=== PATIENT | female | born 1960 | race Caucasian/White ===

== ENCOUNTER 2016-04-11 18:51 | Emergency (ER) | payer OTHER, SELFPAY ==
[2016-04-11] MEDS ORDERED: HYDROcodone/Acetaminophen 5/325 mg Tablet ONE (19:59)
[2016-04-11] MEDS ORDERED: Ketorolac Tromethamine 30 MG/ML VIAL ONE (19:59)
--- NOTE | 2016-04-11 20:20 | ERRECORD ---
[facility] EMERGENCY RECORD HPI BACK (19:19 WMEI) CHIEF COMPLAINT: Patient presents for evaluation of injury, Patient presents for evaluation of pain, to the right lower back. HISTORIAN: History provided by patient. MECHANISM OF INJURY: Mechanism of injury: Body motion, twisting, bending, lifting, No alcohol use associated with this incident, No drug use associated with this incident. LOCATION: Symptoms are localized to the back, left lumbar region, right lumbar region. TIME COURSE: Sudden onset of symptoms, Symptoms are worsening, LOW BACK PAIN WORSE TODAY AFTER WENT BACK TO WORK. ASSOCIATED WITH: No associated bladder incontinence, No associated bowel incontinence, No associated dysuria. EXACERBATED BY: Patient's condition exacerbated by cough, Patient's condition exacerbated by deep breath, Patient's condition exacerbated by movement. RELIEVED BY: Patient's condition relieved by nothing. ROS (19:21 WMEI) CONSTITUTIONAL: Historian denies chills, denies fever. EYES: Historian denies eye pain, denies eye discharge. ENT: Historian denies rhinorrhea, denies sore throat. CARDIOVASCULAR: Historian denies chest pain, no radiation. RESPIRATORY: Historian denies cough, denies shortness of breath. GI: Historian denies abdominal pain, denies nausea. PAIN RADIATES TO LOWER ABD/HIP. GENITOURINARY FEMALE: Historian denies dysuria, denies frequency. MUSCULOSKELETAL: Historian reports back pain, denies joint redness, denies joint stiffness. SKIN: Historian denies skin changes, denies skin lesions. NEUROLOGIC: Historian denies dizziness, denies focal weakness, denies mental status changes. PSYCHIATRIC: Historian denies alcohol abuse, denies anxiety, denies depression. PAST MEDICAL HISTORY (19:02 PGRI) MEDICAL HISTORY: Notes: TBI, Flu vaccine not up to date, Pneumococcal vaccine not up to date. FEMALE SURGICAL HISTORY: LEFT SHOULDER, LEFT KNEE, 3 ANKLE, Surgical history of cholecystectomy. PSYCHIATRIC HISTORY: Psychiatric history includes, depression, PTSD. SOCIAL HISTORY: Patient drinks socially, Patient denies drug use, Patient currently uses tobacco, smokes cigarettes, Patient smokes 1/2 packs per day. KNOWN ALLERGIES Penicillins &a-1R&a+25V*p+0X*r4653D*c202B*c15G*c2P*p-0X&a-25V&a+1R Name: Karla Hong : 1960 F55 MedRec: [id number] AcctNum: [id number] Prepared: Meaghan Apr 11, 2016 20:11 by Interface Page 1 of 3 pMD [facility] EMERGENCY RECORD CURRENT MEDICATIONS (19:14 PGRI) citalopram: TABLET : Strength - 10 mg : ORAL Patient Dose: unk mg Oral. Ambien: TABLET : Strength - 5 mg : ORAL Patient Dose: unk mg Oral. ALPRAZolam: TABLET : Strength - 0.25 mg : ORAL Patient Dose: unk mg Oral. VITAL SIGNS (19:02 KMOR) VITAL SIGNS: BP: 121/80, Pulse: 101, Resp: 18, Temp: 97.8 (Oral), Pain: 5, O2 sat: 99 on Room Air, Time: 04/11/2016 19:02. PHYSICAL EXAM (19:22 WMEI) CONSTITUTIONAL: Patient afebrile, Pulse normal, Patient alert and oriented to person, place and time. HEAD: no abrasions, No Lacerations. EYES: Conjunctiva, Sclera. ENT: Ear exam included findings of, Nose exam included findings of, Pharynx. NECK: Neck exam included findings of normal range of motion, Trachea midline. RESPIRATORY CHEST: Breath sounds clear, Chest exam included findings of chest movement symmetrical. CARDIOVASCULAR: Cardiovascular exam included findings of heart rate regular rate and rhythm, Heart sounds normal. ABDOMEN FEMALE: Abdominal exam included findings of abdomen nontender, Bowel sounds normal, Liver normal, Spleen normal. BACK: Back exam included findings of normal inspection, Range of motion, less than 15 degrees, limited by pain, EXT 10* FLEX 30*. UPPER EXTREMITY: Upper extremity exam included findings of inspection normal, Range of motion normal. LOWER EXTREMITY: Lower extremity exam included findings of inspection normal, Range of motion normal, SLR NEG PASSINELY FROM SITTING POSITION. NEURO: Neuro exam findings include patient oriented to person, place and time, [place] coma scale 15, Speech normal, Deep tendon reflexes abnormal, to the right patella, R PATTELAR DECREASED NO WEAKNWSS IN FLEXOR OR EXTENDERS. SKIN: Skin exam included findings of skin warm, dry, and normal in color. LYMPHATIC: Lymphatic exam normal. PSYCHIATRIC: Psychiatric exam included findings of patient oriented to person place and time, Normal affect, Judgment normal, Insight normal. 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 MEDICATION ADMINISTRATION SUMMARY Drug Name: Toradol intramuscular, Dose Ordered: 60 mg, Route: Intramuscular, Status: Given, Time: 20:06 04/11/2016, Drug Name: [place], Dose Ordered: 5 mg, Route: Oral, Status: Given, Time: 20:05 04/11/2016, Detailed record available in Medication Service section. PROBLEM LIST No recorded problems DIAGNOSIS (19:59 WMEI) FINAL: PRIMARY: SPRAIN LIGAMENTS LUMBAR SPN INITIAL. PRESCRIPTION (19:58 WMEI) Flexeril: TABLET : 10 mg : ORAL : Quantity: 1 Unit: tab(s) Route: ORAL Schedule: 2 times a day (before meals) Dispense: 30 Unit: tab(s) May substitute. Refills: No Refills . NOTES: No refills. traMADol: TABLET : 50 mg : ORAL : Quantity: 1 Unit: tab(s) Route: ORAL Schedule: every 8 hours PRN Dispense: 21 Unit: tab(s) May substitute. Refills: No Refills . NOTES: ^s=No refills No refills. DISPOSITION PATIENT: Disposition Type: Discharge, Disposition: *Discharge Home. (19:59 WMEI) Patient left the department. (20:09 CHOB) Red: VAISHALI=RYLAN Colón, Breanna MELVIN=RYLAN Palacio, Solange VENTURAI=RYLAN Little, Miriam WMEI=DO Leo William &a-1R&a+25V*p+0X*e1400Z*c202B*c15G*c2P*p-0X&a-25V&a+1R Name: Hong, Karla E : 1960 F55 MedRec: [id number] AcctNum: [id number] Prepared: Meaghan Apr 11, 2016 20:11 by Interface Page 3 of 3 pMD MTDD
--- NOTE | 2016-04-11 20:22 | PICIS ---
[facility] EMERGENCY RECORD TRIAGE (19:02 PGRI) TRIAGE NOTES: Patient injured back on Friday at work while pulling a high pressure water hose. (19:02 PGRI) PATIENT: NAME: Karla Hong, AGE: 55, GENDER: female, : Fri1960, TIME OF GREET: FriApr 11, 2016 18:52, PREFERRED LANGUAGE: Czech, ETHNICITY: Not or , ECODE BILLING MAP: [facility], SSN: [id number], Zip Code: [address], KG WEIGHT: 90.72, , , PERSON ID: [id number], PCP: Dash Vaca, /SHREYA. (19:02 PGRI) PHONE: , PAYMENT: [employer] Workmans Comp. (19:11) COMPLAINT: Back Pain. (19:02 PGRI) ADMISSION: URGENCY: 4 Non Urgent, ADMISSION SOURCE: Home, TRANSPORT: Walk-in, BED: TRIAGE. (19:02 PGRI) TRIAGE SCREENING: Patient denies suicidal ideation, Patient denies presence of domestic violence. (19:02 PGRI) PROVIDERS: TRIAGE NURSE: Miriam Little RN. (19:02 PGRI) PREVIOUS VISIT ALLERGIES: Penicillins. (19:02 PGRI) Penicillins. (19:02 PGRI) KNOWN ALLERGIES Penicillins CURRENT MEDICATIONS (19:14 PGRI) citalopram: TABLET : Strength - 10 mg : ORAL Patient Dose: unk mg Oral. Ambien: TABLET : Strength - 5 mg : ORAL Patient Dose: unk mg Oral. ALPRAZolam: TABLET : Strength - 0.25 mg : ORAL Patient Dose: unk mg Oral. VITAL SIGNS VITAL SIGNS: BP: 121/80, Pulse: 101, Resp: 18, Temp: 97.8 (Oral), Pain: 5, O2 sat: 99 on Room Air, Time: 04/11/2016 19:02. (19:02 KMOR) BP: 126/86, Pulse: 72, Resp: 18, Temp: 97.3, Pain: 4, O2 sat: 96 on RA, Time: 04/11/2016 20:09. (20:09 CHOB) NURSING ASSESSMENT: BACK (19:10 PGRI) CONSTITUTIONAL: Patient arrives ambulatory, Gait steady, History obtained from patient, Patient appears, in distress due to pain, Patient cooperative, Patient alert, Oriented to person, place and time, Skin warm, Skin dry, Skin normal in color, Mucous membranes pink, Mucous membranes moist, Patient complains of back pain, patient was at work Friday and was pulling a high pressure water hose and "pulled a muscle in her back". patient able to move all extremities and denies any numbness or tingling in extremities. pain is mostly in low back but it radiates "everywhere". &a-1R&a+25V*p+0X*u3353V*c202B*c15G*c2P*p-0X&a-25V&a+1R Name: Karla Hong : 1960 F55 MedRec: [id number] AcctNum: [id number] Prepared: Meaghan Apr 11, 2016 22:58 by Interface Page 1 of 6 pMD [facility] EMERGENCY RECORD PAIN: aching pain, to the lower back, Pain radiates, Onset of pain 04/08/2016, on a scale 0-10 patient rates pain as 5, Nothing has been tried to alleviate the pain. BACK: Back assessment findings include tenderness to, bilateral lower back, no paresthesias to extremities, no weakness to extremities, no incontinence of bowel or bladder, Right radial pulse +4(strong and bounding), Left radial pulse +4(strong and bounding), Left dorsalis pedis pulse +3(easily palpated, considered normal), Right dorsalis pedis pulse +3(easily palpated, considered normal). NECK: Neck assessment findings include trachea midline, no jugular vein distention noted, no lymphadenopathy, no tenderness, no pain with range of motion, Patient not in spinal immobilization on arrival. SAFETY: Side rails up, Cart/Stretcher in lowest position, Family at bedside, Call light within reach, Hospital ID band on. NURSING PROCEDURE: DISCHARGE NOTE (20:09 CHOB) DISCHARGE: Patient discharged to home, ambulating without assistance, family driving, accompanied by other family member, Patient requested and was provided an electronic copy of Discharge Instructions, Discharge instructions given to patient, Simple or moderate discharge teaching performed, by AAKASH,RN, Prescriptions given and instructions on side effects given, Name of prescription(s) given: TRAMADOL,FLEXERIL, Above person(s) verbalized understanding of discharge instructions and follow-up care, Patient instructed not to drive home. BELONGINGS: Belongings and valuables with patient at time of discharge include:, Belongings remain with patient. SAFETY: Side rails up, Cart/Stretcher in lowest position, Family at bedside, Call light within reach, Hospital ID band on. VITAL SIGNS: BP: 126, / 86, Pulse: 72, Resp: 18, Temp: 97.3, Pain: 4, O2 sat: 96, on: RA. NURSING PROCEDURE: NURSE NOTES (19:12 PGRI) NURSES NOTES: Patient examined by physician. NURSING PROCEDURE: TRANSPORT TO TESTS (19:35 PGRI) PATIENT IDENTIFIER: Patient actively involved in identification process, Patient's identity verified by patient stating name, Patient's identity verified by patient stating date. TRANSPORT TO TESTS: Patient transported to x-ray, via wheelchair. SAFETY: Side rails up, Cart/Stretcher in lowest position, Family at bedside, Call light within reach, Hospital ID band on. ORDER DETAILS Order Name: XR Lumbar Spine 2 Or 3 View, Status: Active, Time: 19:19 04/11/2016, User: WMEI, &a-1R&a+25V*p+0X*e9356M*c202B*c15G*c2P*p-0X&a-25V&a+1R Name: Karla Hong : 1960 F55 MedRec: [id number] AcctNum: [id number] Prepared: FriApr 11, 2016 22:58 by Interface Page 2 of 6 pMD [facility] EMERGENCY RECORD - Ordered for: DO Leo William, - Entered by: DO Leo William - [facility] Apr 11, 2016 19:19, - Quantity: 1. MEDICATION ADMINISTRATION SUMMARY Drug Name: Toradol intramuscular, Dose Ordered: 60 mg, Route: Intramuscular, Status: Given, Time: 20:06 04/11/2016, Drug Name: [place], Dose Ordered: 5 mg, Route: Oral, Status: Given, Time: 20:05 04/11/2016, Detailed record available in Medication Service section. MEDICATION SERVICE [place]: Order: [place] (hydrocodone bitartrate/acetaminophen) - Dose: 5 mg : Oral Schedule: Now Ordered by: Arthur Leo DO Entered by: Arthur Leo DO [facility] Apr 11, 2016 19:57 , Acknowledged by: Miriam Little RN [facility] Apr 11, 2016 19:58 Documented as given by: Miriam Little RN [facility] Apr 11, 2016 20:05 Patient, Medication, Dose, Route and Time verified prior to administration. Site: Medication administered P.O., Patient appears Awake and alert- acceptable, Correct patient, time, route, dose and medication confirmed prior to administration, Patient advised of actions and side-effects prior to administration, Allergies confirmed and medications reviewed prior to administration, Patient in position of comfort, Side rails up, Cart in lowest position, Family at bedside, Call light in reach. Toradol intramuscular: Order: Toradol intramuscular (ketorolac tromethamine) - Dose: 60 mg : Intramuscular Schedule: Now Ordered by: Arthur Leo DO Entered by: Arthur Leo DO [facility] Apr 11, 2016 19:57 , Acknowledged by: Miriam Little RN [facility] Apr 11, 2016 19:58 Documented as given by: Miriam Little RN [facility] Apr 11, 2016 20:06 Patient, Medication, Dose, Route and Time verified prior to administration. IM medication, Medication administered to left deltoid, Patient appears Awake and alert- acceptable, Correct patient, time, route, dose and medication confirmed prior to administration, Patient advised of actions and side-effects prior to administration, Allergies confirmed and medications reviewed prior to administration, Patient in position of comfort, Side rails up, Cart in lowest position, Family at bedside, Call light in reach. HPI BACK (19:19 [facility]) CHIEF COMPLAINT: Patient presents for evaluation of injury, Patient presents for evaluation of pain, to the right lower back. HISTORIAN: History &a-1R&a+25V*p+0X*t0576U*c202B*c15G*c2P*p-0X&a-25V&a+1R Name: Karla Hong : 1960 F55 MedRec: [id number] AcctNum: [id number] Prepared: FriApr 11, 2016 22:58 by Interface Page 3 of 6 pMD [facility] EMERGENCY RECORD provided by patient. MECHANISM OF INJURY: Mechanism of injury: Body motion, twisting, bending, lifting, No alcohol use associated with this incident, No drug use associated with this incident. LOCATION: Symptoms are localized to the back, left lumbar region, right lumbar region. TIME COURSE: Sudden onset of symptoms, Symptoms are worsening, LOW BACK PAIN WORSE TODAY AFTER WENT BACK TO WORK. ASSOCIATED WITH: No associated bladder incontinence, No associated bowel incontinence, No associated dysuria. EXACERBATED BY: Patient's condition exacerbated by cough, Patient's condition exacerbated by deep breath, Patient's condition exacerbated by movement. RELIEVED BY: Patient's condition relieved by nothing. ROS (19:21 WMEI) CONSTITUTIONAL: Historian denies chills, denies fever. EYES: Historian denies eye pain, denies eye discharge. ENT: Historian denies rhinorrhea, denies sore throat. CARDIOVASCULAR: Historian denies chest pain, no radiation. RESPIRATORY: Historian denies cough, denies shortness of breath. GI: Historian denies abdominal pain, denies nausea. PAIN RADIATES TO LOWER ABD/HIP. GENITOURINARY FEMALE: Historian denies dysuria, denies frequency. MUSCULOSKELETAL: Historian reports back pain, denies joint redness, denies joint stiffness. SKIN: Historian denies skin changes, denies skin lesions. NEUROLOGIC: Historian denies dizziness, denies focal weakness, denies mental status changes. PSYCHIATRIC: Historian denies alcohol abuse, denies anxiety, denies depression. PAST MEDICAL HISTORY (:02 PGRI) MEDICAL HISTORY: Notes: TBI, Flu vaccine not up to date, Pneumococcal vaccine not up to date. FEMALE SURGICAL HISTORY: LEFT SHOULDER, LEFT KNEE, 3 ANKLE, Surgical history of cholecystectomy. PSYCHIATRIC HISTORY: Psychiatric history includes, depression, PTSD. SOCIAL HISTORY: Patient drinks socially, Patient denies drug use, Patient currently uses tobacco, smokes cigarettes, Patient smokes 1/2 packs per day. PHYSICAL EXAM (19:22 WMEI) CONSTITUTIONAL: Patient afebrile, Pulse normal, Patient alert and oriented to person, place and time. HEAD: no abrasions, No Lacerations. EYES: Conjunctiva, Sclera. ENT: Ear exam included findings of, Nose exam included findings of, Pharynx. &a-1R&a+25V*p+0X*q9318U*c202B*c15G*c2P*p-0X&a-25V&a+1R Name: Karla Hong : 1960 F55 MedRec: [id number] AcctNum: [id number] Prepared: FriApr 11, 2016 22:58 by Interface Page 4 of 6 pMD [facility] EMERGENCY RECORD NECK: Neck exam included findings of normal range of motion, Trachea midline. RESPIRATORY CHEST: Breath sounds clear, Chest exam included findings of chest movement symmetrical. CARDIOVASCULAR: Cardiovascular exam included findings of heart rate regular rate and rhythm, Heart sounds normal. ABDOMEN FEMALE: Abdominal exam included findings of abdomen nontender, Bowel sounds normal, Liver normal, Spleen normal. BACK: Back exam included findings of normal inspection, Range of motion, less than 15 degrees, limited by pain, EXT 10* FLEX 30*. UPPER EXTREMITY: Upper extremity exam included findings of inspection normal, Range of motion normal. LOWER EXTREMITY: Lower extremity exam included findings of inspection normal, Range of motion normal, SLR NEG PASSINELY FROM SITTING POSITION. NEURO: Neuro exam findings include patient oriented to person, place and time, [place] coma scale 15, Speech normal, Deep tendon reflexes abnormal, to the right patella, R PATTELAR DECREASED NO WEAKNWSS IN FLEXOR OR EXTENDERS. SKIN: Skin exam included findings of skin warm, dry, and normal in color. LYMPHATIC: Lymphatic exam normal. PSYCHIATRIC: Psychiatric exam included findings of patient oriented to person place and time, Normal affect, Judgment normal, Insight normal. EVENTS TRANSFER: Triage to Emergency Triage. (Meaghan Apr 11, 2016 19:02 PGRI) Emergency Triage to Emergency Room -02. (19:02 PGRI) Removed from Emergency Emergency Room -02. 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 PROBLEM LIST No recorded problems DIAGNOSIS (19:59 WMEI) FINAL: PRIMARY: SPRAIN LIGAMENTS LUMBAR SPN INITIAL. DISPOSITION PATIENT: Disposition Type: Discharge, Disposition: *Discharge Home. (19:59 WMEI) Patient left the department. (20:09 CHOB) INSTRUCTION (19:59 WMEI) DISCHARGE: LUMBAR MUSCLE EXERCISES, LUMBAR SPRAINSTRAIN. &a-1R&a+25V*p+0X*h6467Q*c202B*c15G*c2P*p-0X&a-25V&a+1R Name: Karla Hong : 1960 F55 MedRec: [id number] AcctNum: [id number] Prepared: Meaghan Apr 11, 2016 22:58 by Interface Page 5 of 6 pMD [facility] EMERGENCY RECORD FOLLOWUP: [facility], [address] [place] [address], [address], [facility] [place] [address], . SPECIAL: Follow-up with your primary physician as needed. PRESCRIPTION (19:58 WMEI) Flexeril: TABLET : 10 mg : ORAL : Quantity: 1 Unit: tab(s) Route: ORAL Schedule: 2 times a day (before meals) Dispense: 30 Unit: tab(s) May substitute. Refills: No Refills . NOTES: No refills. traMADol: TABLET : 50 mg : ORAL : Quantity: 1 Unit: tab(s) Route: ORAL Schedule: every 8 hours PRN Dispense: 21 Unit: tab(s) May substitute. Refills: No Refills . NOTES: ^s=No refills No refills. IMAGING (21:16 CHOB) *DISCHARGE INSTRUCTIONS RECEIPT: Image captured from scanner. *SUPPLY CHARGE SHEET: Image captured from scanner. ADMIN (22:49 WMEI) DIGITAL SIGNATURE: DO Leo William. Red: CHOB=RYLNA Colón, Breanna KMOR=RYLAN Palacio, Solange PGRI=RYLAN Little, Miriam WMEI=DO Leo William &a-1R&a+25V*p+0X*f5132S*c202B*c15G*c2P*p-0X&a-25V&a+1R Name: Karla Hong : 1960 5 MedRec: [id number] AcctNum: [id number] Prepared: Meaghan Apr 11, 2016 22:58 by Interface Page 6 of 6 pMD MTDD
--- NOTE | 2016-04-11 22:15 | RAD ---
LUMBAR SPINE THREE VIEWS 04/11/16 There is some bony spurring anteriorly at the T11-T12 area as well as T12-L1. No fracture, disc spac e narrowing or any signs of acute bony injury was found. The SI joints are symmetrical. IMPRESSION: 1. No acute bony findings. 2. 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 POS: HOME
== END 2016-04-11 20:09 | disposition home or self-care (01) ==
LOC: BURERS 18:51
DX: S33.5XXA Sprain of ligaments of lumbar spine, initial encounter (principal); F32.9 Major depressive disorder, single episode, unspecified; F17.210 Nicotine dependence, cigarettes, uncomplicated; Z79.899 Other long term (current) drug therapy; X50.1XXA Overexertion from prolonged static or awkward postures, initial encounter
CPT/HCPCS: 72100; 96372; J1885

== ENCOUNTER 2016-04-14 17:20 | Emergency (ER) | payer OTHER, SELFPAY ==
[2016-04-14] MEDS ORDERED: Ketorolac Tromethamine 60 MG/2 ML VIAL ONE (17:57)
[2016-04-14 18:03] LABS: Bilirubin Negative (Negative); Blood, Urine Trace (Negative); Glucose, Urine (Dipstick) Negative (Negative); Ketone, Urine Negative (Negative); Nitrite Negative (Negative); Protein, Urine (Dipstick) Negative (Neg-Trace); Urobilinogen 0.2 mg/dL (0.2-1.0)
[2016-04-14 18:12] LABS: Bacteria/HPF Rare-Few HPF (None Seen); RBC/HPF 0-3 HPF (0-3); Squamous Epithelial 0-3 HPF (0-3); WBC/HPF None Seen HPF (0-3)
[2016-04-14] MEDS ORDERED: HYDROcodone/Acetaminophen 10/325 mg Tablet ONE (18:50)
--- NOTE | 2016-04-14 19:48 | ERRECORD ---
[facility] EMERGENCY RECORD HPI BACK (18:26 JPIP) CHIEF COMPLAINT: Patient presents for evaluation of pain, to the right lower back, Patient presents for evaluation of patient seen for same pain 3 days MBA INTERN. states pain is worse. mostly on the right side. HISTORIAN: History provided by patient. MECHANISM OF INJURY: Mechanism of injury fall, from standing. LOCATION: Symptoms are localized to the back, midline lower back and to the right of L5S1 joint and the right SI joint, No radiation back to front. QUALITY: Pain is dull in nature. SEVERITY: Current severity of pain rated as 3/10. TIME COURSE: Sudden onset of symptoms, Date and time of onset was 3 days MBA INTERN, Not the first visit for this complaint, Last visit: 04/11, Symptoms are worsening, Symptoms are constant. ASSOCIATED WITH: No associated bladder incontinence, No associated bowel incontinence, No associated dysuria, No associated inability to ambulate, No associated motor weakness, No associated numbness, No associated problems with urination, No associated radiation of pain, No associated sciatica, No associated tingling. EXACERBATED BY: Patient's condition exacerbated by deep breath, Patient's condition exacerbated by exercise, Patient's condition exacerbated by extension, Patient's condition exacerbated by flexion, Patient's condition exacerbated by movement, Patient's condition exacerbated by walking. RELIEVED BY: Patient's condition relieved by nothing. ROS (18:30 JPIP) CONSTITUTIONAL: Historian denies chills, denies fever. GI: Historian denies abdominal pain, denies constipation, denies diarrhea, denies nausea, denies vomiting. GENITOURINARY FEMALE: Historian denies dysuria, denies frequency, denies hematuria, denies urgency. MUSCULOSKELETAL: Historian reports back pain, reports fall. SKIN: Historian denies rash, denies skin changes, denies skin lesions. NEUROLOGIC: Historian denies paresthesias. NOTES: All systems reviewed, negative except as described above. PAST MEDICAL HISTORY MEDICAL HISTORY: Notes: TBI, Flu vaccine not up to date, Pneumococcal vaccine not up to date. (17:33 RHIC) FEMALE SURGICAL HISTORY: LEFT SHOULDER, LEFT KNEE, 3 ANKLE, Surgical history of cholecystectomy. (17:33 RHIC) PSYCHIATRIC HISTORY: Psychiatric history includes, depression, PTSD. (17:33 RHIC) SOCIAL HISTORY: Patient drinks socially, Patient denies drug use, Patient currently uses tobacco, smokes cigarettes, Patient &a-1R&a+25V*p+0X*e3110N*c202B*c15G*c2P*p-0X&a-25V&a+1R Name: Karla Hong : 1960 F55 MedRec: [id number] AcctNum: [id number] Prepared: Jacinda Apr 14, 2016 19:08 by Interface Page [address] [facility] EMERGENCY RECORD smokes 1/2 packs per day. (17:33 RHIC) NOTES: Nursing records reviewed, Medication list reviewed. (18:32 JPIP) KNOWN ALLERGIES Penicillins (Unconfirmed) CURRENT MEDICATIONS No recorded medications VITAL SIGNS VITAL SIGNS: BP: 138/92, Pulse: 85, Resp: 16, Temp: 97.9 (Oral), Pain: 3, O2 sat: 95 on Room Air, Time: 04/14/2016 17:32. (17:32 RHIC) BP: 148/99, Pulse: 68, Resp: 16, Temp: 97.7 (Oral), Pain: 0, O2 sat: 96 on Room Air, Time: 04/14/2016 19:00. (19:00 KMOR) PHYSICAL EXAM (18:30 JPIP) CONSTITUTIONAL: Vital Signs Reviewed, Patient afebrile, Pulse normal, Blood pressure, hypertensive, Respiratory rate normal, Patient appears, in moderate pain distress, Patient alert and oriented to person, place and time, Nursing notes reviewed. HEAD: Head exam normal. EYES: Eye exam included findings of eyelids normal to inspection, Conjunctiva normal, Sclera normal, no periorbital ecchymosis, no periorbital edema, no periorbital erythema. NECK: Neck exam included findings of normal range of motion. RESPIRATORY CHEST: Respiratory exam included findings of no respiratory distress, Breath sounds clear, No wheezing, No rales, No rhonchi, Breath sounds not absent, Breath sounds not diminished. CARDIOVASCULAR: Cardiovascular exam included findings of heart rate regular rate and rhythm, Heart sounds normal. ABDOMEN FEMALE: Abdominal exam included findings of abdomen nontender, no peritoneal signs, no rigidity, no guarding, no rebound. BACK: Back exam included findings of normal inspection, Range of motion, limited by pain, Tenderness, midline to the lower back, paraspinal to the right lower, no costovertebral angle tenderness, no pain with straight leg raise, Neg SLR, nl dorsiflexion. UPPER EXTREMITY: Upper extremity exam included findings of inspection normal, Range of motion normal. LOWER EXTREMITY: Lower extremity exam included findings of inspection normal. NEURO: Neuro exam findings include patient oriented to person, place and time, [place] coma scale 15, Gait abnormal. SKIN: Skin exam included findings of skin warm, dry, and normal in color. PSYCHIATRIC: Psychiatric exam included findings of patient oriented to person place and time, Normal affect. &a-1R&a+25V*p+0X*v4312F*c202B*c15G*c2P*p-0X&a-25V&a+1R Name: Karla Hong : 1960 F55 MedRec: [id number] AcctNum: [id number] Prepared: Jacinda Apr 14, 2016 19:08 by Interface Page [address] [facility] EMERGENCY RECORD MEDICATION ADMINISTRATION SUMMARY Drug Name: [place], Dose Ordered: 10 mg, Route: Oral, Status: Given, Time: 18:51 04/14/2016, Drug Name: Toradol intramuscular, Dose Ordered: 60 mg, Route: Intramuscular, Status: Given, Time: 18:06 04/14/2016, Detailed record available in Medication Service section. PROBLEM LIST No recorded problems DIAGNOSIS (18:53 JPIP) FINAL: PRIMARY: Low back pain, ADDITIONAL: DDD. PRESCRIPTION (18:50 JPIP) Mobic: TABLET : 7.5 mg : ORAL : Quantity: 1 Unit: tab(s) Route: ORAL Schedule: 1 to 2 times a day Dispense: 30 May substitute. Refills: No Refills POTENTIAL CONTRAINDICATED INTERACTION: Toradol intramuscular (ketorolac tromethamine) Override Rationale: Patient no longer on medication. NOTES: as needed for pain. No refills. predniSONE oral: TABLET : 20 mg : ORAL : Quantity: 1 Unit: tab(s) Route: ORAL Schedule: once a day Dispense: 5 May substitute. Refills: No Refills . NOTES: Take with food No refills. Tylenol-Codeine #3: TABLET : 300 mg-30 mg : ORAL : Quantity: 1-2 Unit: tab(s) Route: ORAL Schedule: every 6 hours PRN Dispense: 24 May substitute. Refills: No Refills . NOTES: No refills. DISPOSITION PATIENT: Disposition Type: Discharge, Disposition: *Discharge Home, Condition: Good. (18:53 JPIP) Patient left the department. (19:01 KMOR) Red: BRISEIDA=DO Anaya Joseph KMOR=RYLAN Palacio, Solange RHIC=RYLAN Reyes, Marcie &a-1R&a+25V*p+0X*n4889L*c202B*c15G*c2P*p-0X&a-25V&a+1R Name: Hong, Karla E : 1960 F55 MedRec: [id number] AcctNum: [id number] Prepared: Jacinda Apr 14, 2016 19:08 by Interface Page 3 of 3 pMD MTDD
--- NOTE | 2016-04-14 19:52 | PICIS ---
[facility] EMERGENCY RECORD COMMUNICATIONS (18:51 RHIC) COMMUNICATIONS: Notes: RIDE AT BS. TRIAGE (FriApr 14, 2016 17:27 RHIC) TRIAGE NOTES: BACK PAIN. SEEN HERE SEVERAL DAYS AGO S/P FALL AT WORK. STATES BACK PAIN/FLANK PAIN ON RIGHT. HURTS TO MOVE OR BREATH. (Sagle Apr 14, 2016 17:27 RHIC) PATIENT: NAME: Karla Hong, AGE: 55, GENDER: female, : Fri1960, TIME OF GREET: FriApr 14, 2016 17:20, PREFERRED LANGUAGE: Czech, ETHNICITY: Not or , ECODE BILLING MAP: [facility], SSN: [id number], Zip Code: [address], KG WEIGHT: 90.72 (est.), PHONE: , , , PERSON ID: [id number], PAYMENT: SJX Self Pay, PCP: [facility], /[place]. (Sagle Apr 14, 2016 17:27 RHIC) COMPLAINT: Back Pain. (Sagle Apr 14, 2016 17:27 RHIC) ADMISSION: URGENCY: 4 Non Urgent, ADMISSION SOURCE: Home, TRANSPORT: CAR, BED: TRIAGE. (Sagle Apr 14, 2016 17:27 RHIC) IMMUNIZATIONS: Flu vaccine up to date, Tetanus not up to date. (17:33 RHIC) SIRS SCORING: Heart Rate 55-109 (0), Temp range 96.8-101.1 (0), respiratory rate 12-24 (0), Mental Status altered: no (0). (17:33 RHIC) TRIAGE SCREENING: Patient denies suicidal ideation, Patient denies presence of domestic violence. (17:33 RHIC) TREATMENTS IN PROGRESS: Treatments given Prehospital: NONE. (17:33 RHIC) PROVIDERS: TRIAGE NURSE: Marcie Reyes RN. (Sagle Apr 14, 2016 17:27 RHIC) VITAL SIGNS: BP 138/92, Pulse 85, Resp 16, Temp 97.9, (Oral), Pain 3, O2 Sat 95, on Room Air, Time 04/14/2016 17:32. (17:32 RHIC) PREVIOUS VISIT ALLERGIES: Penicillins. (Jacinda Apr 14, 2016 17:27 RHIC) Penicillins. (17:33 RHIC) KNOWN ALLERGIES Penicillins (Unconfirmed) CURRENT MEDICATIONS No recorded medications VITAL SIGNS VITAL SIGNS: BP: 138/92, Pulse: 85, Resp: 16, Temp: 97.9 (Oral), Pain: 3, O2 sat: 95 on Room Air, Time: 04/14/2016 17:32. (17:32 RHIC) BP: 148/99, Pulse: 68, Resp: 16, Temp: 97.7 (Oral), Pain: 0, O2 sat: 96 on Room Air, Time: 04/14/2016 19:00. (19:00 KMOR) NURSING ASSESSMENT: BACK (17:30 RHIC) CONSTITUTIONAL: Patient arrives ambulatory, Gait steady, History obtained from patient, Patient appears comfortable, Patient &a-1R&a+25V*p+0X*d4747L*c202B*c15G*c2P*p-0X&a-25V&a+1R Name: Hong Karla E : 1960 F55 MedRec: [id number] AcctNum: [id number] Prepared: Jacinda Apr 14, 2016 19:08 by Interface Page 1 of 6 pMD [facility] EMERGENCY RECORD cooperative, Patient alert, Oriented to person, place and time, Skin warm, Skin dry, Skin normal in color, Mucous membranes pink, Mucous membranes moist. PAIN: to the lower back, on a scale 0-10 patient rates pain as 3, WORSE WITH MOVEMENT AND DEEP BREATHING. BACK: Back assessment findings include tenderness to, no weakness to extremities. NECK: Neck assessment findings include trachea midline, no tenderness, no pain with range of motion. NURSING PROCEDURE: DISCHARGE NOTE (18:56 KMOR) DISCHARGE: Patient discharged to home, ambulating without assistance, family driving, accompanied by friend, Summary of Care printed/ provided, Transition record given to patient, Discharge instructions given to patient, Simple or moderate discharge teaching performed, by RYLAN Narvaez, Discharge instructions and follow up reviewed with patient. Pt ambulatory to discharge desk., Prescriptions given and instructions on side effects given, Name of prescription(s) given: mobic, prednisone, tylenol #3, Above person(s) verbalized understanding of discharge instructions and follow-up care, Patient instructed not to drive home. BELONGINGS: Belongings remain with patient, Valuables remain with patient. ORDER DETAILS Order Name: CT Lumbar Spine WO Con, Status: Active, Time: 18:14 04/14/2016, User: BRISEIDA, - Ordered for: DO Anaya Joseph, - Entered by: DO Anaya Joseph - Sagle Apr 14, 2016 18:14, - Quantity: 1, Order Name: Urinalysis w/ Rflx Microscopic, Status: Active, Time: 17:43 04/14/2016, User: BRISEIDA, - Ordered for: DO Anaya Joseph, - Entered by: DO Anaya Joseph - Sagle Apr 14, 2016 17:43, - Quantity: 1. MEDICATION ADMINISTRATION SUMMARY Drug Name: [place], Dose Ordered: 10 mg, Route: Oral, Status: Given, Time: 18:51 04/14/2016, Drug Name: Toradol intramuscular, Dose Ordered: 60 mg, Route: Intramuscular, Status: Given, Time: 18:06 04/14/2016, Detailed record available in Medication Service section. MEDICATION SERVICE [place]: Order: [place] (hydrocodone bitartrate/acetaminophen) - Dose: 10 mg : Oral Schedule: Now &a-1R&a+25V*p+0X*a8897V*c202B*c15G*c2P*p-0X&a-25V&a+1R Name: Karla Hong : 1960 F55 MedRec: [id number] AcctNum: [id number] Prepared: Jacinda Apr 14, 2016 19:08 by Interface Page 2 of 6 pMD [facility] EMERGENCY RECORD Ordered by: Silvano Anaya DO Entered by: DO Jacinda Ward Apr 14, 2016 18:14 , Acknowledged by: RYLAN Velazquez Apr 14, 2016 18:19 Documented as given by: RYLAN Velazquez Apr 14, 2016 18:51 Patient, Medication, Dose, Route and Time verified prior to administration. Correct patient, time, route, dose and medication confirmed prior to administration, Patient advised of actions and side-effects prior to administration, Allergies confirmed and medications reviewed prior to administration, Patient in position of comfort, Side rails up, Cart in lowest position, Family at bedside. Toradol intramuscular: Order: Toradol intramuscular (ketorolac tromethamine) - Dose: 60 mg : Intramuscular Schedule: Now Ordered by: Silvano Anaya DO Entered by: DO Jacinda Ward Apr 14, 2016 17:43 , Acknowledged by: RYLAN Pozo Apr 14, 2016 17:56 Documented as given by: RYLAN Pozo Apr 14, 2016 18:06 Patient, Medication, Dose, Route and Time verified prior to administration. IM medication, Amount given: 60MG, Medication administered to left buttock, Patient appears Awake and alert- acceptable, Correct patient, time, route, dose and medication confirmed prior to administration, Patient advised of actions and side-effects prior to administration, Allergies confirmed and medications reviewed prior to administration, Patient in position of comfort, Side rails up, Cart in lowest position, Family at bedside. 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 states pain is worse. mostly on the right side. HISTORIAN: History provided by patient. MECHANISM OF INJURY: Mechanism of injury fall, from standing. LOCATION: Symptoms are localized to the back, midline lower back and to the right of L5S1 joint and the right SI joint, No radiation back to front. QUALITY: Pain is dull in nature. SEVERITY: Current severity of pain rated as 3/10. 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 ASSOCIATED WITH: No associated bladder incontinence, No associated bowel incontinence, No associated dysuria, No associated inability to ambulate, No associated motor weakness, No associated numbness, No associated problems with urination, No associated radiation of pain, No associated sciatica, No associated tingling. EXACERBATED BY: Patient's condition exacerbated by deep breath, Patient's condition &a-1R&a+25V*p+0X*r4356E*c202B*c15G*c2P*p-0X&a-25V&a+1R Name: Karla Hong : 1960 F55 MedRec: [id number] AcctNum: [id number] Prepared: Jacinda Apr 14, 2016 19:08 by Interface Page 3 of 6 pMD [facility] EMERGENCY RECORD exacerbated by exercise, Patient's condition exacerbated by extension, Patient's condition exacerbated by flexion, Patient's condition exacerbated by movement, Patient's condition exacerbated by walking. RELIEVED BY: Patient's condition relieved by nothing. ROS (18:30 JPIP) CONSTITUTIONAL: Historian denies chills, denies fever. GI: Historian denies abdominal pain, denies constipation, denies diarrhea, denies nausea, denies vomiting. GENITOURINARY FEMALE: Historian denies dysuria, denies frequency, denies hematuria, denies urgency. MUSCULOSKELETAL: Historian reports back pain, reports fall. SKIN: Historian denies rash, denies skin changes, denies skin lesions. NEUROLOGIC: Historian denies paresthesias. NOTES: All systems reviewed, negative except as described above. PAST MEDICAL HISTORY MEDICAL HISTORY: Notes: TBI, Flu vaccine not up to date, Pneumococcal vaccine not up to date. (17:33 RHIC) FEMALE SURGICAL HISTORY: LEFT SHOULDER, LEFT KNEE, 3 ANKLE, Surgical history of cholecystectomy. (17:33 RHIC) PSYCHIATRIC HISTORY: Psychiatric history includes, depression, PTSD. (17:33 RHIC) SOCIAL HISTORY: Patient drinks socially, Patient denies drug use, Patient currently uses tobacco, smokes cigarettes, Patient smokes 1/2 packs per day. (17:33 RHIC) NOTES: Nursing records reviewed, Medication list reviewed. (18:32 JPIP) PHYSICAL EXAM (18:30 JPIP) CONSTITUTIONAL: Vital Signs Reviewed, Patient afebrile, Pulse normal, Blood pressure, hypertensive, Respiratory rate normal, Patient appears, in moderate pain distress, Patient alert and oriented to person, place and time, Nursing notes reviewed. HEAD: Head exam normal. EYES: Eye exam included findings of eyelids normal to inspection, Conjunctiva normal, Sclera normal, no periorbital ecchymosis, no periorbital edema, no periorbital erythema. NECK: Neck exam included findings of normal range of motion. RESPIRATORY CHEST: Respiratory exam included findings of no respiratory distress, Breath sounds clear, No wheezing, No rales, No rhonchi, Breath sounds not absent, Breath sounds not diminished. CARDIOVASCULAR: Cardiovascular exam included findings of heart rate regular rate and rhythm, Heart sounds normal. ABDOMEN FEMALE: Abdominal exam included findings of abdomen nontender, no peritoneal signs, no rigidity, no guarding, no rebound. &a-1R&a+25V*p+0X*c9351L*c202B*c15G*c2P*p-0X&a-25V&a+1R Name: Karla Hong : 1960 F55 MedRec: [id number] AcctNum: [id number] Prepared: Jacinda Apr 14, 2016 19:08 by Interface Page 4 of 6 D [facility] EMERGENCY RECORD BACK: Back exam included findings of normal inspection, Range of motion, limited by pain, Tenderness, midline to the lower back, paraspinal to the right lower, no costovertebral angle tenderness, no pain with straight leg raise, Neg SLR, nl dorsiflexion. UPPER EXTREMITY: Upper extremity exam included findings of inspection normal, Range of motion normal. LOWER EXTREMITY: Lower extremity exam included findings of inspection normal. NEURO: Neuro exam findings include patient oriented to person, place and time, [place] coma scale 15, Gait abnormal. SKIN: Skin exam included findings of skin warm, dry, and normal in color. PSYCHIATRIC: Psychiatric exam included findings of patient oriented to person place and time, Normal affect. LAB INTERPRETATION (18:21 JPIP) INTERPRETATION: Urinalysis normal. I reviewed the lab results, All labs normal except as noted below, No clinically significant lab abnormalities. EVENTS TRANSFER: Triage to Emergency Triage. (Jacinda Apr 14, 2016 17:27 RHIC) Emergency Triage to Emergency Room -04. (17:28 KMOR) Removed from Emergency Emergency Room -04. (19:01 KMOR) O2SAT INTERPRETATION (17:40 JPIP) O2SAT: Single pulse oximetry, Oxygen saturation 95%, on room air, Oxygen saturation interpretation: Normal, No intervention required. PROBLEM LIST No recorded problems DIAGNOSIS (18:53 JPIP) FINAL: PRIMARY: Low back pain, ADDITIONAL: DDD. DISPOSITION PATIENT: Disposition Type: Discharge, Disposition: *Discharge Home, Condition: Good. (18:53 JPIP) Patient left the department. (19:01 KMOR) INSTRUCTION (18:51 JPIP) DISCHARGE: LOW BACK PAIN INJURY, DDD DEGENERATIVE DISK DISEASE. FOLLOWUP: [facility], /[facility], [address] [place] [id number], . SPECIAL: Follow up with Primary Care Physician within 72 hours Do not take motrin/ibuprofen/alleve/naprosyn while taking the mobic &a-1R&a+25V*p+0X*n0810D*c202B*c15G*c2P*p-0X&a-25V&a+1R Name: Karla Hong : 1960 F55 MedRec: [id number] AcctNum: [id number] Prepared: Jacinda Apr 14, 2016 19:08 by Interface Page 5 of 6 pMD [facility] EMERGENCY RECORD Follow up with Primary Care Physician within 72 hours. PRESCRIPTION (18:50 JPIP) Mobic: TABLET : 7.5 mg : ORAL : Quantity: 1 Unit: tab(s) Route: ORAL Schedule: 1 to 2 times a day Dispense: 30 May substitute. Refills: No Refills POTENTIAL CONTRAINDICATED INTERACTION: Toradol intramuscular (ketorolac tromethamine) Override Rationale: Patient no longer on medication. NOTES: as needed for pain. No refills. predniSONE oral: TABLET : 20 mg : ORAL : Quantity: 1 Unit: tab(s) Route: ORAL Schedule: once a day Dispense: 5 May substitute. Refills: No Refills . NOTES: Take with food No refills. Tylenol-Codeine #3: TABLET : 300 mg-30 mg : ORAL : Quantity: 1-2 Unit: tab(s) Route: ORAL Schedule: every 6 hours PRN Dispense: 24 May substitute. Refills: No Refills . NOTES: No refills. IMAGING *DISCHARGE INSTRUCTIONS RECEIPT: Image captured from scanner. (19:00 KMOR) *SUPPLY CHARGE SHEET: Image captured from scanner. (19:01 KMOR) Red: BRISEIDA=DO Anaya Joseph KMOR=RYLAN Palacio, Solange RHIC=RYLAN Reyes, Marcie &a-1R&a+25V*p+0X*x9736B*c202B*c15G*c2P*p-0X&a-25V&a+1R Name: Hong, Karla E : 1960 F55 MedRec: [id number] AcctNum: [id number] Prepared: Jacinda Apr 14, 2016 19:08 by Interface Page 6 of 6 pMD MTDD
--- NOTE | 2016-04-14 20:44 | CT ---
CT LUMBAR SPINE: Date: 04/14/[address] of the lumbar spine was done following trauma at work and persistent pain. Axial slices we re acquired, and coronal and sagittal reconstructions were done. FINDINGS: No fracture, dislocation, or acute bony change was appreciated. There are some mild degenerative briana nges consisting of small anterior osteophytes at the T11-L1 levels. There is no sign of foraminal st enosis or central canal stenosis at any level. There is mild concentric bulging of the L4-L5 and L5- S1 discs without definite focal protrusion seen. MRI would be much more sensitive to such, however. The SI joints were symmetrical. There is some mild facet arthritis in the lower lumbar levels beginn ing at about L3 and below. The surrounding soft tissues are unremarkable. IMPRESSION: Mild degenerative changes but no acute traumatic finding. POS: HOME
== END 2016-04-14 18:55 | disposition home or self-care (01) ==
LOC: BURERS 17:20
DX: M51.36 Other intervertebral disc degeneration, lumbar region (principal); F32.9 Major depressive disorder, single episode, unspecified; F17.210 Nicotine dependence, cigarettes, uncomplicated
CPT/HCPCS: 72131; 81003; 81015; 96372; J1885

== ENCOUNTER 2018-06-20 13:01 | Emergency (ER) | payer SELFPAY ==
[2018-06-20] MEDS ORDERED: methylPREDNISolone Sod Succ/PF 125 MG/2 ML VIAL ONE (13:31)
--- NOTE | 2018-06-20 13:52 | RAD ---
LUMBAR SPINE SERIES 3 VIEWS: Date: 06/20/18 HISTORY: Fall with low back pain. COMPARISON: 04/11/16. FINDINGS: Vertebral bodies are normal in height. Degenerative osteophytes are seen along the course of the spin e with minimal disc narrowing at L3-4. There are degenerative facet changes present. No compression f ractures. Pedicles appear intact. No spondylolisthesis. IMPRESSION: Mild arthritic changes of the spine. No acute injury. POS: [facility]
== END 2018-06-20 13:59 | disposition home or self-care (01) ==
LOC: BURERS 13:01
DX: S39.012A Strain of muscle, fascia and tendon of lower back, initial encounter (principal); F32.9 Major depressive disorder, single episode, unspecified; F43.10 Post-traumatic stress disorder, unspecified; F17.210 Nicotine dependence, cigarettes, uncomplicated; X50.9XXA Other and unspecified overexertion or strenuous movements or postures, initial encounter
CPT/HCPCS: 72100; 96372; J2930

== ENCOUNTER 2020-07-21 11:38 | Emergency (ER) | payer OTHER, SELFPAY ==
[2020-07-21] MEDS ORDERED: Famotidine 20 MG TAB ONE (12:20)
[2020-07-21] MEDS ORDERED: predniSONE 20 MG TAB ONE (12:20)
[2020-07-21 12:43] LABS: ALT (SGPT) 23 U/L (8-55); AST (SGOT) 16 U/L (5-34); Albumin 4.3 g/dL (3.5-5.0); Alkaline Phosphatase 68 U/L (40-110); Anion Gap 15 mmol/L (10-20); BUN (Urea Nitrogen) 11 mg/dL (9.8-20.1); Bilirubin, Total 0.5 mg/dL (0.2-1.2); Calc. Creatinine Clearance 0 mL/min (70-130); Calcium 9.4 mg/dL (7.8-10.44); Carbon Dioxide 25 mmol/L (22-29); Chloride 106 mmol/L (98-107); Globulin 2.4 g/dL (2.4-3.5); Glucose 91 mg/dL (70-105); Potassium 4.6 mmol/L (3.5-5.1); Protein, Total 6.7 g/dL (6.0-8.3); Sodium 141 mmol/L (136-145)
== END 2020-07-21 13:26 | disposition home or self-care (01) ==
LOC: BURERS 11:38
DX: L50.9 Urticaria, unspecified (principal); R60.0 Localized edema; F17.210 Nicotine dependence, cigarettes, uncomplicated
CPT/HCPCS: 36415; 80053; 83880; 99283; J7512

== ENCOUNTER 2022-02-11 11:02 | Emergency (ER) | payer BC, OTHER | END 2022-02-11 11:49 | disposition home or self-care (01) | LOC: BURERS 11:02 | DX: J18.9 Pneumonia, unspecified organism (principal); F17.210 Nicotine dependence, cigarettes, uncomplicated | CPT/HCPCS: 71046 ==